=== PATIENT | female | born 1960 | race Caucasian/White ===

== ENCOUNTER 2017-06-12 08:44 | Emergency (ER) | payer MEDICAID ==
[2017-06-12 08:44] VITALS: BMI 36.0
[2017-06-12 09:04] VITALS: RESP 20
[2017-06-12] MEDS ORDERED: Naproxen 550 mg Tab PO STA (09:24)
--- NOTE | 2017-06-12 09:24 | C.PDOC ---
History Of Present Illness 56-year-old female presents to the emergency department with complaints of right -lower back pain that started after a slip and fall one week ago. Pain is worse with movement and palpation of area. Patient denies sensory changes, urinary retention, bowel/bladder incontinence, fever/chills, abdominal pain, dysuria/ hematuria. Time Seen by Provider: 06/12/17 09:09 Chief Complaint (Nursing): Back Pain History Per: Patient History/Exam Limitations: no limitations Onset/Duration Of Symptoms: Days Current Symptoms Are (Timing): Still Present Quality Of Discomfort: "Pain" Associated Symptoms: None. denies: Incontinence, New Weakness, New Numbness Past Medical History Reviewed: Historical Data, Nursing Documentation, Vital Signs Vital Signs: Last Vital Signs Temp 98.1 F 06/12/17 11:40 Pulse 80 06/12/17 11:40 Resp 20 06/12/17 11:40 BP 160/83 H 06/12/17 11:40 Pulse Ox 100 06/12/17 11:40 - Medical History PMH: Diabetes, HTN, Hypercholesterolemia - [facility] Procedures NASAL LACERATION SUTURE (08/08/13) TETANUS TOXOID ADMINIST (08/08/13) Family History: States: No Known Family Hx - Social History Hx Tobacco Use: No Hx Alcohol Use: No Hx Substance Use: No - Immunization History Hx Tetanus Toxoid Vaccination: No Hx Influenza Vaccination: No Hx Pneumococcal Vaccination: No Review Of Systems Except As Marked, All Systems Reviewed And Found Negative. Constitutional: Negative for: Fever, Chills Cardiovascular: Negative for: Chest Pain Respiratory: Negative for: Shortness of Breath Gastrointestinal: Negative for: Abdominal Pain Genitourinary: Negative for: Dysuria, Hematuria Musculoskeletal: Positive for: Back Pain. Negative for: Neck Pain Skin: Negative for: Rash Neurological: Negative for: Weakness, Numbness, Headache, Dizziness Physical Exam - Physical Exam Appears: Well, Non-toxic, In Acute Distress (in moderate pain) Skin: Normal Color, Warm, Dry, No Rash Head: Atraumatic, Normacephalic Oral Mucosa: Moist Neck: Normal, Normal ROM, No Midline Cervical Tenderness, No Paracervical Tenderness, No Step Off Deformity, Supple Chest: Symmetrical Cardiovascular: Rhythm Regular Respiratory: Normal Breath Sounds, No Rales, No Rhonchi, No Wheezing Gastrointestinal/Abdominal: Normal Exam, Bowel Sounds, Soft, No Tenderness Back: Normal Inspection, No CVA Tenderness, No Vertebral Tenderness, Paraspinal Tenderness (Lumbar B/L ) Extremity: Normal ROM, No Tenderness, No Deformity Extremity: Bilateral: Atraumatic, Normal Color And Temperature, Normal ROM Neurological/Psych: Oriented x3, Normal Motor, Normal Sensation Gait: Steady ED Course And Treatment O2 Sat by Pulse Oximetry: 97 (RA) Pulse Ox Interpretation: Normal - Other Rad LS SPINE XRAY X-Ray: Interpreted by Me, Viewed By Me (arthritic changes, no fractures/ listhesis) Progress Note: Patient given PO Naprosyn and Flexeril. Xrays of LS spine ordered and reviewed. Reevaluation Time: 11:30 Reassessment Condition: Improved (On reassessment, patient's pain has improved and she feels better. She is ambulating normally in ED. Rxs for Naprosyn, Flexeril, Vicodin given. Patient instructed to follow up with PMD/clinic in 1- 2 days, and with orthopedics within 1 week if symptoms worsen.) Disposition Counseled Patient/Family Regarding: Studies Performed, Diagnosis, Need For Followup, Rx Given - Disposition Referrals: Ludin Steele MD [Staff Provider] - Disposition: HOME/ ROUTINE Disposition Time: 11:30 Condition: STABLE Additional Instructions: FOLLOW UP WITH YOUR DOCTOR IN 1-2 DAYS FOLLOW UP WITH ORTHOPEDICS WITHIN 1 WEEK USE MEDICATIONS DIRECTED RETURN TO ER IF SYMPTOMS WORSEN Prescriptions: Cyclobenzaprine [Cyclobenzaprine HCl] 10 mg PO BID PRN #15 tab PRN Reason: Muscle Spasm Hydrocodone/Acetaminophen [Hydrocodone-Acetamin 5-325 mg] 1 each PO Q6 PRN #15 tablet PRN Reason: PAIN Naproxen [Naprosyn] 1 tab PO BID PRN #25 tab PRN Reason: Pain Instructions: Osteoarthritis, Low Back Pain (DC) Forms: [employer] (Upper Sorbian), Work Excuse Print Language: LUXEMBOURGISH - POA Present On Arrival: None - Clinical Impression Clinical Impression: Lumbar sprain, Low back pain, Osteoarthritis - Scribe Statement The provider has reviewed the documentation as recorded by the Scribe (Braulio Braden) All medical record entries made by the Scribe were at my direction and personally dictated by me. I have reviewed the chart and agree that the record accurately reflects my personal performance of the history, physical exam, medical decision making, and the department course for this patient. I have also personally directed, reviewed, and agree with the discharge instructions and disposition.
[2017-06-12] MEDS ORDERED: Naproxen 550 mg Tab PO ONE (09:32)
--- NOTE | 2017-06-12 10:38 | RAD ---
PROCEDURE: Radiographs of the Lumbar Spine. HISTORY: r/o fx COMPARISON: None available. FINDINGS: BONES: Alignment appears satisfactory. No listhesis. No acute displaced fracture identified. Extensive multilevel degenerative changes including large anterior osteophyte formation. Facet hypertrophy. DISC SPACES: Intervertebral disc space narrowing most prominent at L1-L2. OTHER FINDINGS: Moderate constipation. IMPRESSION: Multilevel degenerative changes. Moderate constipation.
[2017-06-12 11:40] VITALS: BP 160/83; PULSE 80; TEMP 98.1
[2017-06-17 08:58] VITALS: O2SAT 97
== END 2017-06-12 11:41 | disposition home or self-care (01) ==
LOC: C.ER 08:44
DX: S33.5XXA Sprain of ligaments of lumbar spine, initial encounter (principal); W01.0XXA Fall on same level from slipping, tripping and stumbling without subsequent striking against object, initial encounter; M54.5 Low back pain; M19.90 Unspecified osteoarthritis, unspecified site